=== PATIENT | male | born 1980 | race Caucasian/White ===

== ENCOUNTER 2017-06-28 09:12 | Day surgery (SDC) | payer OTHER ==
[2017-06-28 10:07] VITALS: PULSE 56
[2017-06-28] MEDS ORDERED: LR 1,000 ML IV ONE (10:07)
--- NOTE | 2017-06-28 10:15 | PDGENHP ---
History & Physical Chief Complaint: rectal mass History of Present Illness: 36 year old male presents for evaluation of rectal mass Pertinent Past, Social, Family History: pMHx: None. FaMHx: polyps Relevant Physical Exam: HEENT: anicteric. Cv; RRR +s1s2. Lungs: CTAB. Abd: soft, nt, + bs Cardiorespiratory Assessment: ASA 2
[2017-06-28] MEDS ORDERED: INDOMETHACIN 50 MG SUPP PR PRN (10:19)
[2017-06-28] MEDS ORDERED: fentaNYL 100 MCG/2 ML INJ IVP PRN (10:21)
[2017-06-28] MEDS ORDERED: ALBUTEROL 3 ML DEYVIAL IH PRN (10:21)
[2017-06-28] MEDS ORDERED: NALOXONE HCL 0.4 MG/ML INJ IVP PRN (10:21)
[2017-06-28] MEDS ORDERED: DEXAMETHASONE 4 MG/ML VIAL IVP PRN (10:21)
[2017-06-28] MEDS ORDERED: ONDANSETRON 4 MG/2 ML VIAL IVP PRN (10:21)
--- NOTE | 2017-06-28 10:22 | PDANEPAE ---
ANE History of Present Illness Lower EUS ANE Past Medical History - Cardiovascular History Hx Hypertension: No Hx Arrhythmias: No - Pulmonary History Hx COPD: No Hx Asthma/Reactive Airway Disease: No Hx Sleep Apnea: No ANE Review of Systems Review of Systems: - Exercise capacity Exercise capacity: >=4 METS ANE Patient History - Allergies Allergies/Adverse Reactions: poison alejandra extract Allergy (Verified 06/28/17 09:58) poison oak extract Allergy (Verified 06/28/17 09:58) poison sumac extract Allergy (Verified 06/28/17 09:58) SEASONAL ENVIORNMENTAL Allergy (Uncoded 06/28/17 09:58) - NPO status NPO Since - Liquids (Date): 06/27/17 NPO Since - Liquids (Time): 05:00 NPO Since - Solids (Date): 06/27/17 NPO Since - Solids (Time): 05:00 ANE Labs/Vital Signs - Vital Signs Blood Pressure: 108/79 Heart Rate: 56 Respiratory Rate: 16 O2 Sat (%): 97 Height: 182.88 cm Weight: 91.626 kg ANE Physical Exam - Airway Neck exam: FROM Mallampati Score: Class 2 Mouth exam: normal dental/mouth exam - Pulmonary Pulmonary: clear to auscultation - Cardiovascular Cardiovascular: regular rate and rhythym - ASA Status ASA Status: II ANE Anesthesia Plan Anesthesia Plan: GA with mask Total IV Anesthesia: Yes
[2017-06-28] MEDS ORDERED: LIDOCAINE 2% 5 ML SDV ONE (10:23)
[2017-06-28] MEDS ORDERED: PROPOFOL 200 MG/20 ML VIAL ONE ×2 (10:23→10:49)
[2017-06-28] MEDS ORDERED: PROPOFOL/EMULSION 500 MG/50 ML BOTTLE IV ONE ×2 (10:23→11:05)
[2017-06-28] MEDS ORDERED: NS 500 ML IV SCH (10:30)
[2017-06-28 11:26] VITALS: TEMP 97.3
--- NOTE | 2017-06-28 11:47 | GIREPORT ---
[facility] Surgical Services - Endoscopy Department Patient Name: Lei Carpenter Procedure Date: 06/28/2017 10:02 AM Patient Type: Outpatient Attending MD/ ER Physician: Wili Phelan MD Procedure: Lower EUS Indications: Rectal polypoid lesion vs rectal cancer Patient Profile: 36 year old male presents for evaluation of a rectal polypoid lesion an d possible EMR. Providers: Wili Phelan MD Medicines: Monitored Anesthesia Care Complications: No immediate complications. Estimated blood loss: Minimal. Description of Procedure: After obtaining informed consent, the endoscope was passed under direct vision. Throughout the procedure, the patient's blood pressure, pulse, and oxygen saturations were monitored continuously. The Endosonoscope was introduced through the anus and advanced to the sigmoid colon for ultrasound. The Colonoscope was introduced through the anus and advance d to the sigmoid colon. The lower EUS was accomplished without difficulty. T he patient tolerated the procedure well. The quality of the bowel preparat ion was good. Findings: Endoscopic Finding : A 2 mm polyp was found in the rectum. The polyp was sessile. The polyp was removed with a cold biopsy forceps. Resection and retrieval were comple te. A 35 mm polypoid lesion was found in the distal rectum about 1.5cms fro m the anal verge on the right wall. The lesion was sessile. After EUS examina tion, the lesion was injected with 6cc of saline in multiple quadrants for a raise. The lesion was then removed in a piecemeal resection using a hot snare. APC was then utilized on the edges. 6 clips were placed to close the defect. 2cc of Sisi ink was then injected 1cm distal to the lesion. Endosonographic Finding : An isoechoic mass was found in the rectum. The mass was encountered at 1.5 cm (from the anal verge). The mass was non-circumferential and located predominantly at the left rectal wall. The endosonographic borders were well-defined. There was sonographic evidence suggesting that the mass remained confined to the mucosa (Layers 1 and 2) without extension into the submucosa. No suspicious perirectal or perisigmoid lymph nodes were appreciated. Estimated Blood Loss: Estimated blood loss was minimal. Post Op Diagnosis: - One 2 mm polyp in the rectum, removed with a cold biopsy forceps. Res ected and retrieved. - Polypoid lesion in the distal rectum s/p EMR - Rectal mass was visualized endosonographically. Limited to the superf icial layers. Recommendation: - Discharge patient to home (with escort). - Await path results. - Repeat lower endoscopic ultrasound in 4 months for surveillance. - Thank you for allowing me to participate in the care of your patient. Attending Participation: I personally performed the entire procedure. Wili Phelan MD Wili Phelan MD 06/28/2017 11:46:55 AM This report has been signed electronicallyWili Phelan MD Number of Addenda: 0 Note Initiated On: 06/28/2017 10:02 AM [email or web address]
--- NOTE | 2017-06-28 11:56 | POSTANESTH ---
Post Anesthetic Evaluation Cardiovascular Status: Normal, Stable Respiratory Status: Normal, Stable Level of Consciousness/Mental Status: Can Participate in Eval, Alert and Oriented Pain Control: Adequate, Prn Tx Ordered Nausea/Vomiting Control: Adequate, Prn Tx Ordered Complications Possibly Related to Anesthesia: None Noted
[2017-06-28 13:24] VITALS: BP 96/49; RESP 20; O2SAT 99
== END 2017-06-28 13:15 | disposition home or self-care (01) ==
LOC: FSGY 09:12
PROVIDERS: ATTEND Internal Medicine Gastroenterology
PROC: 0D5P8ZZ Destruction of Rectum, Via Natural or Artificial Opening Endoscopic (ICD-10-PCS; principal; 2017-06-28 10:30)
PROC: 0DBP8ZX Excision of Rectum, Via Natural or Artificial Opening Endoscopic, Diagnostic (ICD-10-PCS; principal; 2017-06-28 10:30)
DX: D12.8 Benign neoplasm of rectum (principal); K62.89 Other specified diseases of anus and rectum
CPT/HCPCS: J2704